=== PATIENT | male | born 1970 | race Caucasian/White ===

== ENCOUNTER 2018-12-01 13:01 | Outpatient (REF) | payer BC, SELFPAY ==
[2018-12-01 21:44] LABS: ALT 58 U/L (12-78); AST 31 U/L (15-37); Albumin 4.1 g/dL (3.4-5.0); Alkaline Phosphatase 61 U/L (46-116); Anion Gap 9.8 mmol/L (3-11); BUN 14 mg/dL (7-18); Bilirubin, Total 1.1 mg/dL (0.2-1.0); CO2 27.2 mmol/L (21.0-32.0); CREATININE 1.02 mg/dL (0.70-1.30); Calcium 9.4 mg/dL (8.5-10.1); Chloride 103 mmol/L (98-107); Cholesterol 172 mg/dL (50-200); Glucose 97 mg/dL (70-100); HDL Cholesterol 48 mg/dL (40-60); LDL CHOLESTEROL 107 mg/dL (<100); Potassium 4.5 mmol/L (3.5-5.1); Sodium 140 mmol/L (136-145); Total Protein 7.7 g/dL (6.4-8.2); Triglyceride 111 mg/dL (30-150)
== END 2018-12-01 13:21 ==
LOC: NCHCN 13:01
PROVIDERS: PCP Family Medicine; Visit Provider Physician Assistant Medical
DX: Z00.00 Encounter for general adult medical examination without abnormal findings (principal); Z13.228 Encounter for screening for other metabolic disorders; Z13.220 Encounter for screening for lipoid disorders
CPT/HCPCS: 80053; 80061; 83721

== ENCOUNTER 2018-12-23 11:16 | Emergency (ER) | payer BC, SELFPAY ==
[2018-12-23 11:38] VITALS: BP 127/77; PULSE 65; RESP 15; TEMP 36.6; O2SAT 96
--- NOTE | 2018-12-23 12:29 | ED.GENADUL_ITS ---
Discharge Plan Disposition Patient Disposition: HOME Condition: Stable Discharge Details Chief Complaint: Nk/Back Pain Clinical Impression: Thoracic myofascial strain, Back contusion Primary Care Provider: Ester Lovell V ED Provider: Alison Ndiaye Home Meds and New Rx's Prescriptions: New cyclobenzaprine 10 mg tablet 10 mg PO TID PRN (Reason: muscle spasm) Qty: 10 RF: 0 ibuprofen 600 mg tablet 600 mg PO QID PRN (Reason: pain) Qty: 20 RF: 0 oxycodone 5 mg tablet 5 mg PO Q6H PRN (Reason: pain) Qty: 5 RF: 0 Continued rabeprazole [Aciphex] 20 MG tablet,delayed release (DR/EC) 20 mg PO BID RF: 0 atenolol 25 MG tablet 25 mg PO DAILY RF: 0 Discharge Instructions Instructions: Muscle Strain (ED), Contusion in Adults (ED) Additional Instructions: Alternate ice and heat to the affected area several times daily for 20 minutes at a time. Take the Motrin and Flexeril as needed and directed for pain and spasm. Take the oxycodone for pain not relieved with Motrin or Flexeril. Follow-up with your primary care doctor in 2 days for re-evaluation and if needed reassessment of return to work date. Return immediately to the emergency department any worsening or new concerning symptoms. Stand Alone Forms: Work Release Discharge Data Discharge Physician: Alison Ndiaye Medical Decision Making 48-year-old male presents with mid line mid back pain since last night after knocked off a couch by his dog directly onto his back. Pain is intermittent. Denies any pain at present. States it feels like a spasm. No cauda equina symptoms. No urinary symptoms. No complaint of extremity pain, weakness or numbness. Midline and paraspinal cervical/thoracic/lumbar region nontender to palpation and normal to inspection. No focal deficits. Neurovascular intact. Patient appears most likely consistent with thoracic muscle strain versus spasm. Symptoms do not appear consistent with herniated disc. As patient has no midline spine tenderness suggestive of thoracic spine fracture, I do not see any indication for x-ray, but this was offered to patient and he declines at this time. We will give a dose of Toradol IM and Valium p.o. Patient requests a work note until next Saturday. Will give a work note to return Saturday, with recommendations to follow-up with his primary care doctor this week for reevaluation to reassess return to work date. Will give prescription for Flexeril, ibuprofen and a few tabs of oxycodone. He is instructed on the importance of alternating ice and heat, meds, muscle relaxers. He is instructed return to the ER at any time if worse. HPI General Mode of arrival: ambulatory . Date/Time Provider Initiated Documentation: 12/23/18 11:48 . Limitations to Documentation: no limitations . Information obtained by: patient . HPI Narrative: Patient is a 48-year-old male who presents with midline mid back pain since last night after knocked off the couch by his dog directly onto his back onto a rug. Patient states the pain is intermittent and feels like a spasm. He denies any pain at present. He denies any upper or lower extremity pain, paresthesias, saddle anesthesia, bowel or bladder incontinence, or abdominal pain. He last took ibuprofen at 530 this morning. 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 Related Data Home Medications Medication Instructions Recorded Confirmed atenolol 25 mg PO DAILY tab-cap 03/21/15 12/23/18 rabeprazole [Aciphex] 20 mg PO BID 03/21/15 12/23/18 cyclobenzaprine 10 mg PO TID PRN #10 tab 12/23/18 ibuprofen 600 mg PO QID PRN #20 tab 12/23/18 oxycodone 5 mg PO Q6H PRN #5 tab 12/23/18 Previous Rx's Medication Instructions Recorded cyclobenzaprine 10 mg PO TID PRN #10 tab 12/23/18 ibuprofen 600 mg PO QID PRN #20 tab 12/23/18 oxycodone 5 mg PO Q6H PRN #5 tab 12/23/18 Allergies Allergy/AdvReac Type Severity Reaction Status Date / Time No Known Allergies Allergy Unverified 07/01/15 08:07 General Stated Complaint: Nk/Back Pain ROMARIO: 3 Review of Systems Review of Systems All systems reviewed & are unremarkable except as noted in HPI and below Constitutional Reports as per HPI, Denies chills and Denies fever(s) Eyes Denies blurry vision ENT Denies dizziness, Denies sore throat and Denies throat swelling Cardiovascular Denies chest pain and Denies dyspnea Respiratory Denies cough and Denies dyspnea Gastrointestinal Denies abdominal pain, Denies diarrhea and Denies vomiting Genitourinary Denies hematuria and Denies dysuria Musculoskeletal Reports back pain and Denies numbness Integumentary/Breasts Denies lesions and Denies rash Neurologic Denies dizziness, Denies focal weakness and Denies numbness Allergic/Immunologic Denies throat swelling [facility] Medical History Right middle lobe pulmonary nodule (Acute) Arthralgia (Chronic) Bilateral knee pain (Chronic) Elevated LFTs (Chronic) GERD (gastroesophageal reflux disease) (Chronic) HTN (hypertension) (Chronic) Impaired fasting glucose (Chronic) Nicotine dependence, chewing tobacco, uncomplicated (Chronic) Obesity (Chronic) Skin tag (Chronic) Tubular adenoma of colon (Resolved) Surgical History Colonoscopy - IV Sedation (07/01/15) Social History Smoking and Tabacco status: Never alcohol intake: current alcohol intake frequency: 0-2 drinks per day substance use type: does not use Exam Const General: cooperative, healthy appearing and no acute distress [facility] Head: normal to inspection Face and sinus: normal facial exam Eyes General: appearance normal, both eyes and all related structures EOM: EOM intact bilaterally Neck Neck: normal visual inspection and No submandibular swelling Lymphatic: no lymphadenopathy noted Chest Chest: normal inspection of the chest and no tenderness Resp Effort & Inspection: normal respiratory effort and able to speak in complete sentences Auscultation: clear to auscultation bilaterally Cardio Rate: regular rate Rhythm: regular rhythm GI Inspection: normal to inspection Palpation: soft, not firm, not rigid and nontender Auscultation: normal bowel sounds Back/Spine/Pelvis Cervical Spine: No cervical muscular tenderness and No cervical spinal tenderness Thoracic/Lumbar Spine: straight leg raise negative bilaterally, No paraspinal tenderness, No thoracic spinal tenderness and No lumbar spinal tenderness Skin General skin exam: no rashes or lesions noted Neuro General: alert, awake and oriented x3 Cognition: normal cognition Speech: speech normal Motor: muscle tone normal throughout and strength 5/5 throughout Sensory Exam: no sensory deficits noted DTR's: Rt Patellar: 1+, Lt Patellar: 1+, Rt Ankle: 1+ and Lt Ankle: 1+ Plantar Reflexes: Equivocal: bilateral Extrem General: normal to inspection, full ROM and no edema Right lower extremity: foot Details: vascular exam Details: dorsalis pedis pulse present and posterior tibial pulse present Left lower extremity: foot Details: vascular exam Details: dorsalis pedis pulse present and posterior tibial pulse present Psych Appearance: grossly normal Mental Status: mental status grossly normal Speech and Movement: speech and movement normal Affect: normal affect Course Vital Signs Temperature 97.9 F 12/23/18 11:38 Pulse 65 12/23/18 11:38 Respiratory Rate 15 12/23/18 11:38 Blood Pressure 127/77 12/23/18 11:38 Pulse Oximetry 96 12/23/18 11:38 Temperature 97.9 F 12/23/18 11:38 Temperature Source Temporal Artery Scan 12/23/18 11:38 Pulse 65 12/23/18 11:38 Respiratory Rate 15 12/23/18 11:38 Respiratory Effort Non-Labored 12/23/18 11:42 Blood Pressure 127/77 12/23/18 11:38 Blood Pressure Position Sitting 12/23/18 11:38 Pulse Oximetry 96 12/23/18 11:38 Oxygen Delivery Method Room Air 12/23/18 11:38 Oxygen Flow Rate 0 12/23/18 11:38 Pain Level 6 12/23/18 11:38
[2018-12-23] MEDS: Ketorolac 60 MG/2 ML VIAL IM (12:32)
[2018-12-23] MEDS: Diazepam 5 MG TAB PO (12:33)
[2018-12-23 12:46] VITALS: BP 127/77; PULSE 65; RESP 15; TEMP 36.6; O2SAT 96
== END 2018-12-23 12:48 | disposition home or self-care (01) ==
PROVIDERS: Emergency Provider Physician Assistant; PCP Family Medicine
DX: S29.012A Strain of muscle and tendon of back wall of thorax, initial encounter (principal); S20.229A Contusion of unspecified back wall of thorax, initial encounter; W54.1XXA Struck by dog, initial encounter
CPT/HCPCS: 96372; 99284; J1885

== ENCOUNTER 2019-03-02 07:30 | Day surgery (SDC) | payer BC, SELFPAY ==
--- NOTE | 2019-03-02 06:42 | W.COLOREPORT ---
Date of service: 03/02/19 Colonoscopy Report Date of procedure: 03/02/19 Pre-op diagnosis general: Hx of polyps and family history of colon Cancer Post-op diagnosis procedure note: same Surgeon: Harper Borjas Anesthesia proc note operative: other (General/ ASA / ) Complications: None Disposition: same day Indications: Mr. Middleton is a pleasant 49-year-old gentleman who was seen in the office for follow-up colonoscopy. He has a family history of colon cancer. His last colonoscopy was in 2014 and he was noted to have a tubular adenoma as well as numerous small polypoid lesions throughout the colon which were randomly biopsied and came back benign. Risks, benefits and complications have been reviewed. Complications include but are not limited to bleeding, pain, perforation, missed small lesion/polyp, sore throat, aspiration and adverse reaction to the medications. Questions were entertained and answered to their satisfaction and they wished to proceed. No guarantees were given or implied. Prep: Miralax/Dulcolax Procedure Description: After informed consent was obtained the patient was taken to the procedure room and placed in a left decubitous position. Monitors were applied and a time out was done. The patients name, date of , procedure, allergies to medications and metal in their body was reviewed. The patient was then sedated. Once sedated and comfortable a rectal exam was done. External exam was normal. Internal exam revealed a normal sphincter tone and no palpable masses. The prostate []. The scope was then introduced and retro-flexed. [] internal hemorrhoids were identified. The scope was then advanced to the cecum [] difficulty. The TI and appendiceal orifice were identified. The prep was []. The scope was then slowly retracted over [] minutes back into the rectum. Polyps were removed at []. The scope was removed and the patient was woken up and taken back to Same day surgery in stable condition. The patient tolerated the procedure well and there were no immediate complications. Follow up: The patient should follow up in [] years unless they develop changes in bowel habits or other new gastrointestinal complaints.
--- NOTE | 2019-03-02 06:44 | W.PM.DSUDISC ---
Discharge Plan Disposition Patient Disposition: HOME Condition: Good Discharge Details Reason For Visit: Hx of colon polyps and FHx of colon Cancer Attending Provider: Harper Borjas Primary Care Provider: Ester Lovell V Home Meds and New Rx's Prescriptions: No Action polyethylene glycol 3350 17 gram/dose powder 238 g PO ONCE Qty: 238 RF: 0 bisacodyl [Dulcolax (bisacodyl)] 5 mg tablet,delayed release (DR/EC) 5 mg PO ONCE Qty: 4 RF: 0 rabeprazole [Aciphex] 20 MG tablet,delayed release (DR/EC) 20 mg PO ONCE RF: 0 atenolol 25 MG tablet 25 mg PO DAILY RF: 0 cyclobenzaprine 10 mg tablet 10 mg PO TID PRN (Reason: muscle spasm) Qty: 10 RF: 0 acetaminophen [Acetaminophen Extra Strength] 500 mg Tablet 500 mg PO Q6H PRNRF: 0 Discharge Instructions Instructions: Colonoscopy (DC) Additional Instructions: Findings: Follow up: Please call if you develop: fevers >101.5 Nausea or Vomiting Abdominal pain that is not transient DAY SURGERY UNIT POST COLONOSCOPY INSTRUCTIONS 1. Because there will be medication in your system for the next 24 hours, you may feel a little sleepy. Your coordination will be affected. Therefore: a. Do not drive or operate dangerous equipment for 24 hours. b. Do not drink alcohol beverages for 24 hours (not even beer). c. Plan to go home and rest for the day. 2. Generally there are no restrictions on your activity after a day or so has gone by, but you may feel a bit fatigued for a few days. 3 After you arrive home you may have a light meal and return to a normal diet as you can tolerate it without feeling sick to your stomach. 4. After surgery, you may feel pain or discomfort. This should be only transient, but if it persists please contact your doctor. 5. If there are any questions regarding the findings of your procedure, please feel free to contact your doctor. 6. If you are unable to contact your doctor with a problem, contact the hospital at [phone]. 7. Continue all your regular medications unless directed otherwise. I understand the above instructions and have no questions. Signature of Patient or Responsible Adult Escort Date/Time Name of Responsible Adult Escort Signature of Nurse Date/Time Activity:: Activity as Tolerated Diet:: As Tolerated DS: Diagnosis Discharge Diagnosis (1) Family history of colon cancer: Status: Chronic (2) S/P colonoscopy: Status: Acute
== END 2019-03-02 07:50 | disposition home or self-care (01) ==
PROVIDERS: PCP Family Medicine; Visit Provider Surgery
DX: Z12.11 Encounter for screening for malignant neoplasm of colon (principal); Z53.29 Procedure and treatment not carried out because of patient's decision for other reasons
CPT/HCPCS: 45378

== ENCOUNTER 2019-04-14 07:11 | Day surgery (SDC) | payer BC, SELFPAY ==
--- NOTE | 2019-04-14 06:49 | W.COLOREPORT ---
Date of service: 04/14/19 Time of Service: 08:25 Colonoscopy Report Date of procedure: 04/14/19 Pre-op diagnosis general: Hx of polyps and Family history Post-op diagnosis procedure note: same (cecal polyp) Procedure: Colonoscopy with polypectomy Surgeon: Harper Borjas Anesthesia proc note operative: other (General/ ASA 2/Jin Hopper CRNA) Estimated blood loss (mL): 2 Pathology: other (cecal polyp) Complications: Other (polyp possibly lost as we got it out of the tubbing) Disposition: same day Indications: Mr. Middleton is a pleasant 49 year old male seen in the office for a colonoscopy. His last Colonoscopy was in 2014 and he had polyps. He also has a family history of colon cancer. Risks, benefits and complications have been reviewed. Complications include but are not limited to bleeding, pain, perforation, missed small lesion/polyp, sore throat, aspiration and adverse reaction to the medications. Questions were entertained and answered to their satisfaction and they wished to proceed. No guarantees were given or implied. Prep: Miralax/Dulcolax Procedure Start Time: :25 Procedure End Time: 08:57 Retraction Time: 24 minutes Findings: One very small polyp in the Cecum. It was removed but when the forceps were removed from the colonoscope and opened there was no tissue. A trap was placed on the suction and the fluid was suctioned out. There was a small amount of tissue in the trap. Patient should follow up in 5 years no matter what due to his family history. Procedure Description: After informed consent was obtained the patient was taken to the procedure room and placed in a left decubitous position. Monitors were applied and a time out was done. The patients name, date of , procedure, allergies to medications and metal in their body was reviewed. The patient was then sedated. Once sedated and comfortable a rectal exam was done. External exam was normal. Internal exam revealed a normal sphincter tone and no palpable masses. The prostate felt smooth. The scope was then introduced and retro-flexed. There were small internal hemorrhoids identified. The scope was then advanced to the cecum without difficulty. The TI and appendiceal orifice were identified. The prep was adequate. There was some mucus and stool in the cecum and ascending colon which was cleaned with 1 L of Saline to get a good view of the mucosa. The scope was then slowly retracted over 24 minutes back into the rectum. Polyps were removed with cold forceps in the cecum. The tissue was not found when the forceps were opened. A trap was placed on the suction tubing and the fluid was suctioned out. A small amount of tissue was noted in the trap and sent to pathology. The scope was removed and the patient was woken up and taken back to Same day surgery in stable condition. The patient tolerated the procedure well and there were no immediate complications. Follow up: The patient should follow up in 5 years unless they develop changes in bowel habits or other new gastrointestinal complaints.
--- NOTE | 2019-04-14 06:59 | W.PM.DSUDISC ---
Discharge Plan Disposition Patient Disposition: HOME Condition: Good Discharge Details Reason For Visit: Hx of polyps/ Family history of colon Cancer Attending Provider: Harper Borjas Primary Care Provider: Ester Lovell V Home Meds and New Rx's Prescriptions: Continued rabeprazole [Aciphex] 20 MG tablet,delayed release (DR/EC) 20 mg PO ONCE RF: 0 atenolol 25 MG tablet 25 mg PO DAILY RF: 0 cyclobenzaprine 10 mg tablet 10 mg PO TID PRN (Reason: muscle spasm) Qty: 10 RF: 0 acetaminophen [Acetaminophen Extra Strength] 500 mg Tablet 500 mg PO Q6H PRNRF: 0 Discontinued polyethylene glycol 3350 17 gram/dose powder 238 g PO ONCE Qty: 238 RF: 0 bisacodyl [Dulcolax (bisacodyl)] 5 mg tablet,delayed release (DR/EC) 5 mg PO ONCE Qty: 4 RF: 0 Discharge Instructions Instructions: Colonoscopy (DC) Additional Instructions: Findings: one polyp small internal hemorrhoids Follow up: 5 years Please call if you develop: fevers >101.5 Nausea or Vomiting Abdominal pain that is not transient DAY SURGERY UNIT POST COLONOSCOPY INSTRUCTIONS 1. Because there will be medication in your system for the next 24 hours, you may feel a little sleepy. Your coordination will be affected. Therefore: a. Do not drive or operate dangerous equipment for 24 hours. b. Do not drink alcohol beverages for 24 hours (not even beer). c. Plan to go home and rest for the day. 2. Generally there are no restrictions on your activity after a day or so has gone by, but you may feel a bit fatigued for a few days. 3 After you arrive home you may have a light meal and return to a normal diet as you can tolerate it without feeling sick to your stomach. 4. After surgery, you may feel pain or discomfort. This should be only transient, but if it persists please contact your doctor. 5. If there are any questions regarding the findings of your procedure, please feel free to contact your doctor. 6. If you are unable to contact your doctor with a problem, contact the hospital at [phone]. 7. Continue all your regular medications unless directed otherwise. I understand the above instructions and have no questions. Signature of Patient or Responsible Adult Escort Date/Time Name of Responsible Adult Escort Signature of Nurse Date/Time Activity:: Activity as Tolerated Diet:: As Tolerated Discharge Orders Discharge Orders: Discharge Order (Routine); Ordered 04/14/19 Ordered By: Harper Borjas DS: Diagnosis Discharge Diagnosis (1) S/P colonoscopy: Status: Acute (2) Family history of colon cancer: Status: Chronic
--- NOTE | 2019-04-14 07:10 | W.PM.HP.N ---
Date of service: 04/14/19 Time of Service: 07:00 Assessment and Plan (1) Family history of colon cancer: Current visit: No Status: Chronic A\\ Family history of colon Cancer and personal history of colon polyps P\\ Colonoscopy under sedation The patient is here for Colonoscopy pre-op. His last screening was in 2014, which was remarkable for Tubular adenoma and Diverticulitis. Also of note the Colonoscopy procedure note by Dr. Ty also states: Interestingly enough though he has literally 100s of these very tiny polypoid lesions, of really questionable significance. None of them are more than a few millimeters in diameter. I did retail customer service representative biopsies in the cecum, transverse colon, descending colon, sigmoid colon and rectum and sent these off. He has a family history of colon cancer in his paternal grandfather. He has not had any bowel habit changes. -Discussed colonoscopy bowel prep as well as the procedure. Discussed possible complications of the procedure to include bleeding, pain, perforation, missed small lesion/polyp, sore throat, aspiration and adverse reaction to the medications. Questions were answered to patient?s satisfaction. No guarantees were implied or given. -He will hold his Ibuprofen starting 5 days prior to his procedure. -Counseled him on his heavy alcohol use. He reports that he has been cutting back and has been trying to drink more light beers instead of whiskey. He has also been trying to make diet modifications for weight loss. He verbalized that he is aware, that to improve his health he should cut back and states I will never stop drinking, I am just going to drink less. (2) Tubular adenoma of colon: Current visit: No Status: Chronic History of Present Illness Narrative: 49 y/o male with history of HTN and GERD presents for colonoscopy screening pre-op. His last screening was in 2014, which was remarkable for Tubular adenoma and Diverticulitis. Also of note the Colonoscopy procedure note by Dr. Ty also states: Interestingly enough though he has literally 100s of these very tiny polypoid lesions, of really questionable significance. None of them are more than a few millimeters in diameter. I did retail customer service representative biopsies in the cecum, transverse colon, descending colon, sigmoid colon and rectum and sent these off. He reports a family history of colon cancer in his paternal grandfather. He denies any changes in bowel habits reporting he frequently has loose stools. Denies bloody or black tarry stools, abdominal pain, diarrhea or constipation. He denies constitutional symptoms. Denies use of marijuana or any other recreational or illegal drugs. He has been out of work for several weeks secondary to severe back pain, which he is currently working with PT to help resolve. He denies chest pain, palpitations, dyspnea or dyspnea with exertion. He denies prior history or family history of adverse reactions or complications with anesthesia. No changes in his health since he was seen in the office. [facility] Medical History Right middle lobe pulmonary nodule (Acute) Arthralgia (Chronic) Bilateral knee pain (Chronic) Elevated LFTs (Chronic) GERD (gastroesophageal reflux disease) (Chronic) HTN (hypertension) (Chronic) Impaired fasting glucose (Chronic) Nicotine dependence, chewing tobacco, uncomplicated (Chronic) Obesity (Chronic) Skin tag (Chronic) Tubular adenoma of colon (Resolved) Surgical History History of arthroscopy of both knees (Acute) Colonoscopy - IV Sedation (07/01/15) Family History Father Cancer Mother COPD (chronic obstructive pulmonary disease) Maternal Grandfather DJD (degenerative joint disease) Social History Smoking/Tobacco Use Status: Never Alcohol Intake: current Alcohol Intake frequency: 0-2 drinks per day Alcohol type: beer and hard liquor Drug use: Never Substance use type: does not use Do you feel safe at home: Yes Do you feel safe in your relationship?: Yes Meds Home Medications Medication Instructions Recorded Confirmed Type atenolol 25 mg PO DAILY tab-cap 03/21/15 04/14/19 History rabeprazole [Aciphex] 20 mg PO ONCE 03/21/15 04/14/19 History cyclobenzaprine 10 mg PO TID PRN #10 tab 12/23/18 04/14/19 Rx acetaminophen [Acetaminophen Extra 500 mg PO Q6H PRN 02/25/19 04/14/19 History Strength] Allergies Allergy/AdvReac Type Severity Reaction Status Date / Time No Known Allergies Allergy Unverified 04/14/19 07:21 Exam Resp Effort & Inspection: normal respiratory effort Auscultation: clear to auscultation bilaterally Cardio Rate: regular rate Rhythm: regular rhythm Heart Sounds: no gallops, no murmurs and no rubs
[2019-04-14 07:34] VITALS: BP 124/87; PULSE 67; RESP 18; TEMP 37; O2SAT 97
[2019-04-14] MEDS: Lactated Ringers 1,000 ML 80 ML IV (07:53)
--- NOTE | 2019-04-14 08:35 | BOWEL_PTH ---
PATIENT: Anuel Middleton LOC: [facility] U#:[id number] AGE/SX: 49/M ROOM: RE04/14/[address]: Harper Borjas MD : [id number] BED: DIS: 04/14/2019 SPEC #: [id number] RECD: 04/14/19 12:49 STATUS: [place] RECallie #: [id number] MATT: 04/14/19 08:[address]: Harper Borjas DEPT: Surgical Specimen RECD BY: Rena Alcala ENTERED: 04/14/19 12:50 SP TYPE: Bowel OTHR DR: Ester Lovell V Tissues: 1 - BIOPSY BOWEL Procedures: GROSS AND MICRO LEVEL 4 Comments: [id number]
[2019-04-14 09:45] VITALS: BP 112/71; PULSE 61; RESP 18; TEMP 36.1; O2SAT 97
== END 2019-04-14 10:15 | disposition home or self-care (01) ==
LOC: SUR 07:12
PROVIDERS: PCP Family Medicine; Visit Provider Surgery
PROC: 0DJD8ZZ Inspection of Lower Intestinal Tract, Via Natural or Artificial Opening Endoscopic (ICD-10-PCS; CPT 45378; principal; 2019-04-14 08:30)
DX: Z12.11 Encounter for screening for malignant neoplasm of colon (principal); Z80.0 Family history of malignant neoplasm of digestive organs; Z86.010 Personal history of colon polyps; K63.5 Polyp of colon; K64.8 Other hemorrhoids
CPT/HCPCS: 45380; 88305; NC

== ENCOUNTER 2019-11-06 08:25 | Outpatient (REF) | payer BC, SELFPAY ==
[2019-11-06 19:38] LABS: ALT 63 U/L (16-63); AST 38 U/L (15-37); Alkaline Phosphatase 53 U/L (46-116); Anion Gap 10.3 mmol/L (3-11); BUN 14 mg/dL (7-18); Bilirubin, Total 0.7 mg/dL (0.2-1.0); CO2 26.7 mmol/L (21.0-32.0); CREATININE 0.88 mg/dL (0.70-1.30); Calcium 9.1 mg/dL (8.5-10.1); Calculated LDL 102 mg/dL; Chloride 104 mmol/L (98-107); Cholesterol 167 mg/dL (<200); Glucose 105 mg/dL (74-106); HDL Cholesterol 33 mg/dL (40-60); Potassium 4.3 mmol/L (3.5-5.1); Sodium 141 mmol/L (136-145); Total Protein 7.2 g/dL (6.4-8.2); Triglyceride 162 mg/dL (<150)
[2019-11-06 19:48] LABS: Hemoglobin A1C 5.3 % (3.8-5.6)
== END 2019-11-06 08:45 ==
LOC: NCHCN 08:25
PROVIDERS: PCP Family Medicine; Visit Provider Physician Assistant Medical
DX: I10 Essential (primary) hypertension (principal)
CPT/HCPCS: 80053; 80061; 83036

== ENCOUNTER 2019-11-19 00:54 | Outpatient (CLI) | payer BC, SELFPAY ==
--- NOTE | 2019-11-19 15:25 | DI.CT_ITS ---
EXAM: CT CHEST WO CLINICAL HISTORY: PULMONARY NODULE RT MIDDLE LOBE R91.1 TECHNIQUE: Noncontrast COMPARISON: CHEST WITH CONTRAST from 11/25/2017 FINDINGS: There has been no change in size or appearance of a previously noted smoothly marginated nodule in th e right middle lobe measuring 8 millimeters in maximal dimension. No new nodules are seen. There ar e no infiltrates, effusions or evidence of adenopathy. The bronchi appear normal. There are no unde rlying emphysematous or fibrotic changes. The heart size is normal. No coronary artery or aortic ca lcifications are seen. Liver shows severe fatty infiltration. The gallbladder, spleen and adrenals appear normal. The visualized portions of the pancreas and kidneys appear normal. Flowing osteophyt es are noted in the thoracic spine. IMPRESSION: Stable appearance of right middle lobe nodule. Given lack of change control manager 2 years, this is consistent with a benign nodule.
== END 2019-11-19 01:14 ==
PROVIDERS: PCP Family Medicine; Visit Provider Physician Assistant Medical
DX: R91.1 Solitary pulmonary nodule (principal); K76.0 Fatty (change of) liver, not elsewhere classified
CPT/HCPCS: 71250

== ENCOUNTER 2020-11-11 11:03 | Outpatient (REF) | payer BC, SELFPAY ==
[2020-11-11 15:31] LABS: ALT 73 U/L (16-63); AST 47 U/L (15-37); Albumin 3.9 g/dL (3.4-5.0); Alkaline Phosphatase 61 U/L (46-116); Anion Gap 7.5 mmol/L (3-11); BUN 16 mg/dL (7-18); Bilirubin, Total 0.7 mg/dL (0.2-1.0); CO2 25.5 mmol/L (21.0-32.0); CREATININE 0.92 mg/dL (0.70-1.30); Calcium 9.1 mg/dL (8.5-10.1); Calculated LDL 117 mg/dL (<100); Chloride 105 mmol/L (98-107); Cholesterol 186 mg/dL (<200); Glucose 106 mg/dL (74-106); HDL Cholesterol 43 mg/dL (40-60); Potassium 4.2 mmol/L (3.5-5.1); Sodium 138 mmol/L (136-145); Total Protein 7.3 g/dL (6.4-8.2); Triglyceride 131 mg/dL (<150)
[2020-11-11 15:42] LABS: Hemoglobin A1C 5.1 % (<5.7)
[2020-11-15 10:54] LABS: Hepatitis A Antibody IgM Negative (Negative); Hepatitis B Core Antibody Negative (Negative); Hepatitis B surface Ag Negative (Negative); Hepatitis C Ab w Rflx HCV PCR Negative (Negative)
== END 2020-11-11 11:23 ==
LOC: NCHCN 11:03
PROVIDERS: PCP Family Medicine; Visit Provider Physician Assistant Medical
DX: I10 Essential (primary) hypertension (principal); R73.01 Impaired fasting glucose; R79.89 Other specified abnormal findings of blood chemistry
CPT/HCPCS: 80053; 80061; 86704; 86709; 86803; 87340; 83036

== ENCOUNTER 2021-05-12 08:40 | Outpatient (REF) | payer BC, SELFPAY ==
[2021-05-12 19:26] LABS: ALT 66 U/L (16-63); AST 40 U/L (15-37); Albumin 4.1 g/dL (3.4-5.0); Alkaline Phosphatase 65 U/L (46-116); Anion Gap 9.2 mmol/L (3-11); BUN 15 mg/dL (7-18); CO2 25.8 mmol/L (21.0-32.0); CREATININE 0.9 mg/dL (0.70-1.30); Chloride 106 mmol/L (98-107); Glucose 103 mg/dL (74-106); Potassium 4.6 mmol/L (3.5-5.1); Sodium 141 mmol/L (136-145); Total Protein 7.2 g/dL (6.4-8.2)
== END 2021-05-12 08:41 | disposition home or self-care (01) ==
LOC: NCHCN 08:40
PROVIDERS: PCP Family Medicine; Visit Provider Physician Assistant Medical
DX: R79.89 Other specified abnormal findings of blood chemistry (principal); R73.03 Prediabetes
CPT/HCPCS: 80053

== ENCOUNTER 2021-11-10 08:49 | Outpatient (REF) | payer BC, SELFPAY ==
[2021-11-10 13:22] LABS: ALT 71 U/L (16-63); AST 39 U/L (15-37); Albumin 4.1 g/dL (3.4-5.0); Alkaline Phosphatase 67 U/L (46-116); Anion Gap 8.9 mmol/L (3-11); BUN 16 mg/dL (7-18); Bilirubin, Total 0.8 mg/dL (0.2-1.0); CO2 27.1 mmol/L (21.0-32.0); CREATININE 0.8 mg/dL (0.70-1.30); Calcium 9.5 mg/dL (8.5-10.1); Calculated LDL 90 mg/dL (<100); Chloride 104 mmol/L (98-107); Cholesterol 157 mg/dL (<200); Glucose 105 mg/dL (74-106); HDL Cholesterol 34 mg/dL (40-60); Potassium 4.4 mmol/L (3.5-5.1); Sodium 140 mmol/L (136-145); Total Protein 7.3 g/dL (6.4-8.2); Triglyceride 167 mg/dL (<150)
== END 2021-11-10 08:50 | disposition home or self-care (01) ==
LOC: NCHCN 08:49
PROVIDERS: PCP Family Medicine; Visit Provider Physician Assistant Medical
DX: I10 Essential (primary) hypertension (principal); R79.89 Other specified abnormal findings of blood chemistry
CPT/HCPCS: 80053; 80061; 85027; 83036

== ENCOUNTER 2022-05-18 09:55 | Outpatient (REF) | payer BC, SELFPAY ==
[2022-05-18 16:43] LABS: HCT 46.2 % (40.0-50.0); HGB 16.9 g/dL (13.5-17.5); MCH 34.1 pg (27.0-33.0); MCHC 36.6 % (32.0-36.0); MCV 93 fL (80-95); MPV 10.6 fL (8.0-11.0); Platelet Count 175 10^3/uL (130-400); RBC 4.96 10^6/uL (4.36-5.78); RDW 11.8 % (11.8-14.1); RDW-SD 40.7 fL; WBC 5.52 10^3/uL (4.4-10.8)
[2022-05-18 16:54] LABS: ALT 90 U/L (16-63); AST 56 U/L (15-37); Albumin 4.1 g/dL (3.4-5.0); Alkaline Phosphatase 69 U/L (46-116); Anion Gap 9.6 mmol/L (3-11); BUN 15 mg/dL (7-18); Bilirubin, Total 0.8 mg/dL (0.2-1.0); CO2 24.4 mmol/L (21.0-32.0); CREATININE 0.9 mg/dL (0.70-1.30); Calcium 9.9 mg/dL (8.5-10.1); Chloride 104 mmol/L (98-107); Glucose 115 mg/dL (74-106); Potassium 4.2 mmol/L (3.5-5.1); Sodium 138 mmol/L (136-145); Total Protein 7.6 g/dL (6.4-8.2)
== END 2022-05-18 09:56 | disposition home or self-care (01) ==
LOC: NCHCN 09:55
PROVIDERS: PCP Family Medicine; Visit Provider Physician Assistant Medical
DX: R79.89 Other specified abnormal findings of blood chemistry (principal)
CPT/HCPCS: 80053; 85027

== ENCOUNTER 2022-12-04 15:54 | Outpatient (REF) | payer BC, SELFPAY ==
[2022-12-04 18:37] LABS: HCT 44.4 % (40.0-50.0); HGB 15.5 g/dL (13.5-17.5); MCH 32.3 pg (27.0-33.0); MCHC 34.9 % (32.0-36.0); MCV 93 fL (80-95); MPV 9.8 fL (8.0-11.0); Platelet Count 240 10^3/uL (130-400); RDW 11.6 % (11.8-14.1); RDW-SD 39.8 fL; WBC 7.34 10^3/uL (4.4-10.8)
[2022-12-04 18:50] LABS: ALT 52 U/L (16-63); AST 37 U/L (15-37); Albumin 4.3 g/dL (3.4-5.0); Alkaline Phosphatase 75 U/L (46-116); Anion Gap 7.8 mmol/L (3-11); BUN 18 mg/dL (7-18); Bilirubin, Total 0.6 mg/dL (0.2-1.0); CO2 26.2 mmol/L (21.0-32.0); CREATININE 1.1 mg/dL (0.70-1.30); Calcium 10.3 mg/dL (8.5-10.1); Chloride 105 mmol/L (98-107); Estimated GFR 80.27 (mL/min/1.73m2); Glucose 116 mg/dL (74-106); Potassium 4.2 mmol/L (3.5-5.1); Sodium 139 mmol/L (136-145); Total Protein 7.6 g/dL (6.4-8.2)
== END 2022-12-04 15:55 | disposition home or self-care (01) ==
LOC: NCHCN 15:54
PROVIDERS: PCP Family Medicine; Visit Provider Physician Assistant Medical
DX: I10 Essential (primary) hypertension (principal); R79.89 Other specified abnormal findings of blood chemistry
CPT/HCPCS: 80053; 85027

== ENCOUNTER 2022-12-11 20:11 | Emergency (ER) | payer BC, SELFPAY ==
[2022-12-11 20:15] VITALS: BP 141/91; PULSE 76; RESP 18; TEMP 36.5; O2SAT 97
--- NOTE | 2022-12-11 20:20 | ED.GENADUL_ITS ---
Discharge Plan Disposition Patient Disposition: Home Condition: Stable Discharge Details Clinical Impression: Lumbosacral strain, Spasm of muscle of lower back Primary Care Provider: Ester Lovell V ED Provider: Alison Ndiaye Home Meds and New Rx's Prescriptions: New methocarbamol 500 mg tablet 500 mg PO Q6H PRN (Reason: muscle spasm) Qty: 14 0RF prednisone 20 mg tablet See Rx Instructions .ROUTE .COMPLEX Qty: 18 0RF Rx Instructions: Take 3 tabs daily for 3 days, then 2 tabs daily for 3 days, then 1 tab daily for 3 days. Continued atenolol 25 MG tablet 25 mg PO DAILY diclofenac sodium 75 mg tablet,delayed release (DR/EC) 75 mg PO BID rabeprazole [AcipHex] 20 mg tablet,delayed release (DR/EC) 20 mg PO DAILY Discharge Instructions Instructions: Low Back Strain (ED), Muscle Spasm (ED) Additional Instructions: Your symptoms appear likely consistent with a musculoskeletal strain in your lower back. Alternate ice and heat to the affected area(s) several times daily for 20 minutes at a time. Alternate tylenol and ibuprofen as needed and directed for pain. Take the oxycodone for pain not relieved with Tylenol or ibuprofen. Prescriptions for prednisone and methocarbamol sent electronically to your pharmacy. Follow-up with your primary care doctor in 1 week. Return to the emergency department with any worsening or new concerning symptoms. Stand Alone Forms: Work Release Discharge Data Discharge Date/Time-TO BE ENTERED AT DEPARTURE: 12/11/22 21:18 Discharge Physician: Alison Ndiaye Medical Decision Making 52-year-old male with a history of obesity, hypertension, GERD, previous back injury presents with left-sided lower back pain for the past week, worse today after putting on his shoes. Patient appears uncomfortable but nontoxic. He has an antalgic gait secondary to left-sided lower back pain. His left lower back is tender to palpation just superior to the SI joint. There is no evidence of rash, trauma or cellulitis. He has no focal deficits. History and presentation does not appear consistent with cauda equina syndrome, fracture, kidney stone, AAA. Suspect musculoskeletal etiology as his symptoms started after bending over placing wood in a wood stove and worse when bending over to put on his shoes today. D iscussed that he likely can respond to a short course of steroids and muscle relaxers but also recommended to alternate Tylenol and Motrin, ice and heat. We will give a dose of prednisone, Valium and oxycodone now and was given oxycodone bottle to go. Prescriptions for prednisone and methocarbamol sent electronically to his pharmacy. Advised to follow up with the primary care doctor for re-evaluation. Usual and customary return precautions given prior to discharge. Medical Records Medical records reviewed: Yes I reviewed the patient's medical records. HPI General Mode of arrival: ambulatory . Date/Time Provider Initiated Documentation: 12/11/22 20:13 . Limitations to Documentation: no limitations . Information obtained by: patient . HPI Narrative: Pt is a 52yo M history of obesity, hypertension, GERD and previous back injury presents with left-sided lower back pain for the past week, worse today after putting on his shoes. Patient states he was bending over [address] wood in the wood stove when he had sudden onset of left-sided lower back pain. Patient states since then he has had pain that occurs mostly with movement. He denies any fever, abdominal pain, urinary symptoms, bowel or bladder i ncontinence, leg pain, weakness or numbness. Patient took 3 Advil 3 hours ago with some relief. He states he also had a 10 mg Valium left over from a previous back injury in 2019 which he took 5 hours ago with out relief. Related Data Home Medications Medication Instructions Recorded Confirmed atenolol 25 mg tablet 25 mg PO DAILY 03/21/15 12/11/22 diclofenac sodium 75 mg 75 mg PO BID 05/23/21 12/11/22 tablet,delayed release rabeprazole 20 mg tablet,delayed 20 mg PO DAILY 06/20/21 12/11/22 release (AcipHex) methocarbamol 500 mg tablet 500 mg PO Q6H PRN muscle spasm #14 12/11/22 tabs prednisone 20 mg tablet See Rx Instructions .Route 12/11/22 .COMPLEX #18 tabs Previous Rx's Medication Instructions Recorded methocarbamol 500 mg tablet 500 mg PO Q6H PRN muscle spasm #14 12/11/22 tabs prednisone 20 mg tablet See Rx Instructions .Route 12/11/22 .COMPLEX #18 tabs Allergies Allergy/AdvReac Type Severity Reaction Status Date / Time No Known Allergies Allergy Unverified 12/11/22 20:54 General Stated Complaint: Nk/Back Pain ROMARIO: 4 Review of Systems All systems reviewed & are unremarkable except as noted in HPI and below Constitutional Constitutional: Reports as per HPI, Denies chills and Denies fever(s) Eyes Eyes: Denies blurry vision ENT Ears, Nose, Mouth, and Throat: Denies dizziness, Denies sore throat and Denies throat swelling Cardiovascular Cardiovascular: Denies chest pain and Denies dyspnea Respiratory Respiratory: Denies cough and Denies dyspnea Gastrointestinal Gastrointestinal: Denies abdominal pain, Denies diarrhea and Denies vomiting Genitourinary Genitourinary: Denies hematuria and Denies dysuria Musculoskeletal Musculoskeletal: Reports back pain and Denies numbness Integumentary/Breasts Skin/Breast: Denies lesions and Denies rash Neurologic Neurologic: Denies dizziness, Denies localized weakness and Denies numbness Allergic/Immunologic Allergic/Immunologic: Denies throat swelling PFSH All Active Problems Lumbosacral strain (Acute) Spasm of muscle of lower back (Acute) Left carpal tunnel syndrome (Acute) Tubular adenoma of colon (Chronic) Family history of colon cancer (Chronic) S/P colonoscopy (Acute ~04/14/19) 2015-Tubular adenoma Medical History (Updated 12/11/22 @ 20:59 by Alison Ndiaye DO) Arthralgia Bilateral knee pain Elevated LFTs GERD (gastroesophageal reflux disease) HTN (hypertension) Hx of colonic polyp Impaired fasting glucose PT. STATES HE IS UNSURE OF THIS Nicotine dependence, chewing tobacco, uncomplicated Obesity Pain in left shoulder Right middle lobe pulmonary nodule Skin tag Tubular adenoma of colon Fredo, 07/01/15 Surgical History Colonoscopy - IV Sedation (07/01/15) Dr.Chris Ty History of arthroscopy of both knees Family History (Updated 05/17/21 @ 14:14 by Majo Fuller) Father Cancer Alcohol abuse Mother COPD (chronic obstructive pulmonary disease) Maternal Grandfather DJD (degenerative joint disease) Paternal Grandfather Alcohol abuse Colon cancer Paternal Grandmother Diabetes Daughter Alcohol abuse Social History (Updated 05/17/21 @ 14:13 by Majo Fuller) Smoking/Tobacco Use Status: Current every day Tobacco Type: smokeless tobacco Smoking risk assessment performed?: Yes Alcohol Intake: former Drug use: Never Substance use type: does not use Do you feel safe at home: Yes Do you feel safe in your relationship?: Yes Exam Const General: cooperative and uncomfortable Orientation: alert, awake and oriented x3 HENMT Head: normal to inspection Face and sinus: normal facial exam Eyes General: appearance normal, both eyes and all related structures Pupils: PERRL EOM: EOM intact bilaterally Neck Neck: normal visual inspection and No submandibular swelling Lymphatic: no lymphadenopathy noted Chest Chest: normal inspection of the chest and no tenderness Resp Effort & Inspection: normal respiratory effort and able to speak in complete sentences Auscultation: clear to auscultation bilaterally Cardio Rate: regular rate Rhythm: regular rhythm GI Inspection: normal to inspection Palpation: soft, not firm, not rigid and nontender Auscultation: hypoactive bowel sounds Back/Spine/Pelvis Thoracic/Lumbar Spine: thoracic and lumbar spine normal to inspection, No tho racic spinal tenderness and No lumbar spinal tenderness Back/spine/pelvis image: 1. Localized area of tenderness to palpation to the left lower back just super ior to the SI joint. There is no erythema, edema, ecchymosis, rash or lesions. Skin General skin exam: no rashes or lesions noted Neuro General: patient alert, patient awake and patient oriented x3 Cognition: normal cognition Speech: speech normal Motor: muscle tone normal throughout and strength 5/5 throughout Sensory Exam: no sensory deficits noted DTR's: Rt Patellar: 1+, Lt Patellar: 1+, Rt Ankle: 1+ and Lt Ankle: 1+ Plantar Reflexes: Equivocal: bilateral (negative b/l ) Extrem General: normal to inspection, full ROM, capillary refill normal, no calf tenderness bilaterally and no edema Psych Appearance: grossly normal Mental Status: mental status grossly normal Speech and Movement: speech and movement normal Affect: normal affect Course Vital Signs Vital signs: Vital Signs Temperature 97.7 F 12/11/22 20:15 Pulse 76 12/11/22 20:15 Respiratory Rate 18 12/11/22 20:15 Blood Pressure 141/91 H 12/11/22 20:15 Temperature 97.7 F 12/11/22 20:15 Pulse 76 12/11/22 20:15 Respiratory Rate 18 12/11/22 20:15 Blood Pressure 141/91 H 12/11/22 20:15 Blood Pressure Position Sitting 12/11/22 20:15 Oxygen Delivery Method Room Air 12/11/22 20:15 Oxygen Flow Rate 0 12/11/22 20:15 Pain Level 9 12/11/22 20:15
[2022-12-11] MEDS: diazePAM 5 MG TAB PO (20:51)
[2022-12-11] MEDS: oxyCODONE 5 MG TAB PO (20:51)
[2022-12-11] MEDS: predniSONE 20 MG TAB 60 MG PO (20:51)
[2022-12-11 21:19] VITALS: BP 129/81; PULSE 75; RESP 20; TEMP 36.5; O2SAT 97
== END 2022-12-11 21:18 | disposition home or self-care (01) ==
PROVIDERS: Emergency Provider Physician Assistant; PCP Family Medicine
DX: M62.830 Muscle spasm of back (principal); S39.012A Strain of muscle, fascia and tendon of lower back, initial encounter; X50.1XXA Overexertion from prolonged static or awkward postures, initial encounter
CPT/HCPCS: 99283; 99284; J7512

== ENCOUNTER 2023-05-31 10:04 | Outpatient (REF) | payer BC, SELFPAY ==
[2023-05-31 15:43] LABS: HCT 45.3 % (40.0-50.0); HGB 15.8 g/dL (13.5-17.5); MCH 32.4 pg (27.0-33.0); MCHC 34.9 % (32.0-36.0); MCV 93 fL (80-95); MPV 10.6 fL (8.0-11.0); Platelet Count 201 10^3/uL (130-400); RBC 4.88 10^6/uL (4.36-5.78); RDW 12.2 % (11.8-14.1); RDW-SD 42.3 fL; WBC 6.19 10^3/uL (4.4-10.8)
[2023-05-31 16:10] LABS: ALT 54 U/L (16-63); AST 29 U/L (15-37); Albumin 4.1 g/dL (3.4-5.0); Alkaline Phosphatase 72 U/L (46-116); Anion Gap 8.1 mmol/L (3-11); BUN 15 mg/dL (7-18); Bilirubin, Total 0.8 mg/dL (0.2-1.0); CO2 25.9 mmol/L (21.0-32.0); Calcium 10.2 mg/dL (8.5-10.1); Calculated LDL 104 mg/dL (<100); Chloride 106 mmol/L (98-107); Cholesterol 157 mg/dL (<200); Estimated GFR 89.44 (mL/min/1.73m2); Glucose 104 mg/dL (74-106); HDL Cholesterol 39 mg/dL (40-60); Potassium 4.5 mmol/L (3.5-5.1); Sodium 140 mmol/L (136-145); Total Protein 7.4 g/dL (6.4-8.2); Triglyceride 73 mg/dL (<150)
[2023-05-31 17:06] LABS: Hemoglobin A1C 5.1 % (<5.7)
== END 2023-05-31 10:05 | disposition home or self-care (01) ==
LOC: NCHCN 10:04
PROVIDERS: PCP Family Medicine; Visit Provider Physician Assistant Medical
DX: R73.03 Prediabetes (principal); I10 Essential (primary) hypertension; R79.89 Other specified abnormal findings of blood chemistry
CPT/HCPCS: 80053; 80061; 85027; 83036

== ENCOUNTER 2024-03-13 14:45 | Outpatient (REF) | payer BC, SELFPAY ==
[2024-03-13 18:50] LABS: Abs Immature Grans 0.02 10^3/uL (0.0-0.06); Absolute Basophil Count 0.06 10^3/uL (0.0-0.2); Absolute Eosinophil Count 0.21 10^3/uL (0.0-0.7); Absolute Lymphocyte Count 2.22 10^3/uL (1.2-3.4); Absolute Monocyte Count 0.66 10^3/uL (0.1-0.8); Absolute Neutrophil Count 3.63 10^3/uL (1.2-6.7); Basophils % 0.9 %; Eosinophils % 3.1 %; HCT 47.3 % (40.0-50.0); HGB 16.6 g/dL (13.5-17.5); Immature Grans % 0.3 %; Lymphocytes % 32.6 %; MCH 33.1 pg (27.0-33.0); MCHC 35.1 % (32.0-36.0); MCV 94 fL (80-95); MPV 9.9 fL (8.0-11.0); Monocytes % 9.7 %; Neutrophils % 53.4 %; Platelet Count 227 10^3/uL (130-400); RBC 5.01 10^6/uL (4.36-5.78); RDW 11.9 % (11.8-14.1); RDW-SD 41.2 fL
[2024-03-13 19:07] LABS: ALT 70 U/L (16-63); AST 35 U/L (15-37); Albumin 4.1 g/dL (3.4-5.0); Alkaline Phosphatase 78 U/L (46-116); Anion Gap 8.2 mmol/L (3-11); BUN 17 mg/dL (7-18); Bilirubin, Total 0.7 mg/dL (0.2-1.0); CO2 26.8 mmol/L (21.0-32.0); Calcium 9.9 mg/dL (8.5-10.1); Chloride 107 mmol/L (98-107); Estimated GFR 88.88 (mL/min/1.73m2); Glucose 96 mg/dL (74-106); Potassium 4.5 mmol/L (3.5-5.1); Sodium 142 mmol/L (136-145); Total Protein 7.1 g/dL (6.4-8.2)
[2024-03-13 19:14] LABS: Hemoglobin A1C 5.4 % (<5.7)
== END 2024-03-13 14:46 | disposition home or self-care (01) ==
LOC: NCHCN 14:45
PROVIDERS: PCP Family Medicine; Visit Provider Physician Assistant Medical
DX: Z01.818 Encounter for other preprocedural examination (principal); R73.03 Prediabetes
CPT/HCPCS: 80053; 83036; 85025

== ENCOUNTER 2024-12-01 15:06 | Outpatient (REF) | payer BC, SELFPAY ==
[2024-12-01 16:23] LABS: Calculated LDL 73 mg/dL (<100); Cholesterol 155 mg/dL (<200); HDL Cholesterol 34 mg/dL (40-60); Triglyceride 244 mg/dL (<150)
== END 2024-12-01 15:07 | disposition home or self-care (01) ==
LOC: NCHCN 15:06
PROVIDERS: PCP Family Medicine; Visit Provider Physician Assistant Medical
DX: I10 Essential (primary) hypertension (principal)
CPT/HCPCS: 80061

== ENCOUNTER 2025-02-05 07:44 | Day surgery (SDC) | payer BC, SELFPAY ==
--- NOTE | 2025-02-04 16:26 | PDOC.DSDIS_ITS ---
Date of service: 02/05/25 Discharge Plan Disposition Patient Disposition: Home Condition: Good Discharge Details Reason For Visit: Screening colonoscopy Attending Provider: Fabian Jackson Primary Care Provider: Marcellus Hernandez Home Meds and New Rx's Prescriptions: Continued atenolol 25 MG tablet 25 mg PO DAILY diclofenac sodium 75 mg tablet,delayed release (DR/EC) 75 mg PO BID rabeprazole [AcipHex] 20 mg tablet,delayed release (DR/EC) 20 mg PO DAILY Discontinued bisacodyl [Dulcolax (bisacodyl)] 5 mg tablet,delayed release (DR/EC) 5 mg PO ONCE Qty: 4 0RF Rx Instructions: Take per colonoscopy instructions provided by ordering providers office polyethylene glycol 3350 17 gram/dose powder 17 g PO ONCE Qty: 238 0RF Rx Instructions: Take per colonoscopy instructions provided by ordering providers office Discharge Instructions Instructions: Colon polyps, Diverticulosis Additional Instructions: Moncho, it was good seeing you today. I apologize I did not recognize your first. Colonoscopy went very smoothly, and I hope you feel great this afternoon. I did find, and removed, just 1 polyp today. It came out very easily and similar to your previous experiences, this will be sent to the pathologist for the review. Once we know the nature of that polyp, I will be in touch with recommendations for the timing of your next colonoscopy. Incidentally, you have little bit of diverticulosis as well. Diverticula are little weak spots in the muscular layer of the colon wall. This causes the inside lining (mucosa) to pocket approach outwards a little bit. These pockets are called diverticula, and the condition of having them is known as diverticulosis. I find that many patients that I do colonoscopy in. Most of the time, patients are never bothered by them. They can get infected or inflamed during episodes that we refer to as diverticulitis. Patient is typically experience that as sharp pain, usually on the left side of the belly, with associated fevers, and a feeling of illness. Hopefully, ears will never bother you. I generally recommend the patient stay well-hydrated with plenty of water through the course of the day, eat lots of fiber, and avoid any symptoms of constipation. If having questions about any of this, please feel free to give me a call at [phone]. Otherwise, we will be in touch once we have the polyp report. 1. If tolerated, consume a soft, low fiber diet for 1-2 days. [address] Do not drive, drink alcohol, operate machinery, make critical decisions, or d o activities that require coordination or balance for 24 hours. 3. Because air was put into your colon during the procedure, expelling air from your rectum (passing gas or farting) is normal. 4. You may not have a bowel movement for 1-3 days because of the colonoscopy prep. This is normal. 5. Go directly to the emergency room if you notice any of the following: Develop chills (warm to touch), or if you have a thermometer and your temperature is above 101 Difficulty breathing or difficultly swallowing Persistent vomiting Severe abdominal pain, other than gas cramps Severe chest pain Black, tarry stools Any bleeding ? exceeding one tablespoon 6. Call your physician if the site where your intravenous was started becomes red, swollen, painful, and warm to touch. 7. Your physician has reviewed your pre-procedure medications. Please continue to take those medications as previously ordered. You will be given specific information/education regarding any changes to your medications before leaving. Stand Alone Forms: Anesthesia Discharge InstReece, Safia Mendiola (DSU) Activity:: Activity as Tolerated Diet:: As Tolerated Discharge Orders Discharge Orders: Discharge Order (Routine); Ordered 02/04/25 Ordered By: Fabian Jackson DS: Diagnosis Discharge Diagnosis (1) Encounter for screening colonoscopy: Status: Acute Asessment and Plan: Follow-up on polypectomy result
--- NOTE | 2025-02-04 16:27 | COLE_ITS ---
Date of service: 02/05/25 Time of Service: 09:44 Colonoscopy Report Date of procedure: 02/05/25 Pre-op diagnosis general: Screening colonoscopy Post-op diagnosis procedure note: other (Diverticulosis, colon polyp) Procedure: Colonoscopy with polypectomy Surgeon: Fabian Jackson Anesthesia Type: General:No Airway Estimated blood loss (mL): 5 Pathology: other (0.5 centimeter pedunculated polyp at 40 cm from the anus) Complications: None Disposition: same day Indications: Anuel is a 55-year-old male who needs his next screening colonoscopy Prep: Miralax/Dulcolax Procedure Start Time: 09:17 Procedure End Time: 09:38 Retraction Time: 14 Findings: Sigmoid diverticulosis, 0.5 cm pedunculated polyp at 40 cm Procedure Description: After the induction of anesthesia, and with the patient in left lateral decubitus position, I began by performing an external anorectal exam.? Perineum and skin were normal, as was the anal verge.? There was no evidence of external hemorrhoids.? Next, I performed a digital rectal exam.? I did not appreciate any abnormal findings.? Next, I advanced a colonoscope into the rectal vault.? I performed retroflexion.? This appeared normal.? Using irrigation, I then advanced the colonoscope beyond the rectal folds and into the sigmoid colon before advancing towards the cecum.? There is sigmoid diverticulosis.? The scope was noted to be in the cecum by identification of the ileocecal valve and appen diceal orifice.? I then began withdrawing the colonoscope using repeated irrigation as necessary for full evaluation of the colonic mucosa. Around 40 cm from the anal verge was a 0.5 cm pedunculated polyp. Narrowband imaging was used to assist with the analysis. Features appeared consistent with adenomatous polyp, and this was removed with cold snare polypectomy. There was minimal bleeding. Resection was complete. ?Once the scope was withdrawn to the level of the rectum, great care was taken to examine portions of the rectal folds.? Finally, the scope was withdrawn and the patient was brought to the same-day surgery recovery unit as the anesthetic wore off. ?The findings and instructions were shared with the patient prior to discharge. [place] Bowel Prep [place] Bowel Prep Right Colon: 2 Left Colon: 3 Transverse Colon: 3 Total Score: 8
[2025-02-05 08:07] VITALS: BP 127/94; PULSE 67; RESP 16; TEMP 36.4; O2SAT 96
[2025-02-05] MEDS: Lactated Ringers 1,000 ML 80 ML IV (08:20)
--- NOTE | 2025-02-05 08:31 | W.ANESPRE ---
General Info Date of Service Date Performed: 02/05/25 Height: 6 ft 1 in Weight: 138.3 kg Body Mass Index (BMI): 40.2 Surgical Procedure: Operation Date: 02/05/25 09:05 Proposed Procedure Side Surgeon p Colonoscopy Fabian Jackson MD Actual Procedure Side Surgeon p Colonoscopy Not Applicable Fabian Jackson MD Pre-Op Diagnosis Post-Op Diagnosis Screening colonoscopy, history of polyps Meds Allergies and Home Medications Allergies Allergy/AdvReac Type Severity Reaction Status Date / Time No Known Allergies Allergy Verified 02/05/25 08:05 Home Medication ?Medication ?Instructions ?Recorded atenolol 25 mg tablet 25 mg PO DAILY 03/21/15 diclofenac sodium 75 mg 75 mg PO BID 05/23/21 tablet,delayed release rabeprazole 20 mg tablet,delayed 20 mg PO DAILY 06/20/21 release (AcipHex) Current Visit Medications: Current Medications Generic Name Dose Route Start Last Admin Trade Name Freq PRN Reason Stop Dose Admin Ringer's Solution 1,000 mls @ 80 mls/hr 02/05/25 06:00 02/05/25 08:20 IV 02/05/25 23:59 80 mls/hr INFUSION JERZY Administration IV Miscellaneous Supplies 1 each 02/05/25 06:00 Iv Access IV 02/05/25 23:59 DIRECTED JERZY Ondansetron HCl 4 mg 02/04/25 16:28 Ondansetron 4 Mg/2 Ml Vial IVP 03/06/25 16:27 Q4H PRN PRN Nausea / Vomiting Sodium Chloride 0 ml 02/05/25 06:00 Normal Saline Flush 10 Ml Syr IV 02/05/25 23:59 PRN PRN Sodium Chloride 0 ml 02/05/25 06:00 Normal Saline 10 Ml Vial IJ 02/05/25 23:59 DIRECTED PRN Sterile Water 0 ml 02/05/25 06:00 Water,Injection,Sterile 10 Ml Vial IJ 02/05/25 23:59 DIRECTED PRN PFSH Active Problems Active Problems: Problem Status Onset Code Encounter for screening colonoscopy Acute Z12.11 Left carpal tunnel syndrome Acute G56.02 Tubular adenoma of colon Chronic D12.6 Family history of colon cancer Chronic Z80.0 S/P colonoscopy Acute ~04/14/19 Z98.890 Medical History Medical History Hx of colonic polyp Pain in left shoulder GERD (gastroesophageal reflux disease) Bilateral knee pain HTN (hypertension) Skin tag Obesity Nicotine dependence, chewing tobacco, uncomplicated Impaired fasting glucose PT. STATES HE IS UNSURE OF THIS Elevated LFTs Arthralgia Right middle lobe pulmonary nodule Tubular adenoma of colon Fredo, 07/01/15 Surgical History Surgical History History of arthroscopy of both knees Colonoscopy - IV Sedation (07/01/15) Dr.Chris Ty Tobacco Smoking/Tobacco Use Status: Current every day Tobacco Type: smokeless tobacco Alcohol Alcohol Intake: current Alcohol intake frequency: a few times a week Alcohol type: beer and hard liquor Substance Use Substance use: Never Substance use type: does not use Vital Signs and Lab Results Vital Signs Most Recent Vital Signs in EMR: Most Recent Vital Signs Temp Pulse Resp BP Pulse Ox 36.4 C L 67 16 127/94 H 96 02/05/25 08:07 02/05/25 08:07 02/05/25 08:07 02/05/25 08:07 02/05/25 08:07 Lab Results Blood Type / Crossmatch: No Data to Display Complete Blood Count: No Data to Display Complete Metabolic Panel: No Data to Display Liver Function Panel: No Data to Display Coagulation Panel: No Data to Display Cardiac Panel: No Data to Display Arterial Blood Gas: No Data to Display Venous Blood Gas: No Data to Display Pancreas Panel: No Data to Display Thyroid Panel: No Data to Display Infectious Disease: No Data to Display Blood Cultures: No Data to Display Toxicology Panel: No Data to Display Imaging and Studies Imaging and Studies Study information below may be from another EMR and interpreted by another provider. Please see original notes in EMR for more complete details. Stress Test Summary: STRESS TEST PATIENT NAME: DORA CARDOZO UNIT #: [id number] ADMITTING PROVIDER: RACHELLE BEASLEY LUCY PRIMARY CARE PROVIDER: GHASSAN CLARKE MD DATE OF SERVICE: 12/31/13 : 1970 Physician: Aaron/Rachelle. Tech: JOI. Hgt(inches): 73 Wgt(lbs): 284 History: 43 year old man who noted the onset of non-exertional chest discomfort over several days. Because of this discomfort, which lasted only seconds at a time, he presented to the ER where EKG and enzymes were normal. It was felt to be atpical pain and he was referred for a stress test. Family Hx: None. Smoking Hx: Never. Exercise: None. Diabetes: Neg Hypertension: Yes BP(supine): 132/68 Cholesterol: Trig: HDL: LDL: Date: Lipid meds: None. Troponin: <0.02 Date: 12/16/13 Other: None reported. Meds: Atenolol (last dose 12/29/13), ASA, Prilosec. Protocol: Kang Max MPH: 4.2 % Grade: 16.0 Target HR 100%: 176 85%: 150 ETT ended at: 10:21 due to Fatigue, patient request. Peak HR: 156 METS: 89 Physical examination: Lungs: Clear Cor: Reg Resting 12 lead EKG: SB. 59 BPM. RESULTS Arrhythmias: Single PVC during recovery. Angina: None. HR response: Normal. Max 156 BPM @ 89% of target. BP response: Normal. Max SBP 168. ST-T changes: No ischemic EKG changes are elicited. Functional Capacity: Average. IMPRESSION: Normal study. Negative for ischemia. Anesthesia Assessment and Plan Anesthesia History Personal History: No History of Anesthesia Complications Family History: No Family History of Anesthesia Complications Exercise Tolerance Exercise Tolerance: Metabolic Equivalents>4 Pertinent Negatives Pertinent Negatives: No Symptoms of GERD (well controlled with med, took this am) Cardiac & Pulmonary Exam Cardiac Exam: Normal S1/S2 Heart Sounds Pulmonary Exam: Clear Bilateral Breath Sounds Implantable Cardiac Device Does patient have a Pacemaker or an ICD?: No Airway Exam Known Difficult Airway: No Mallampati Class: 2 Mouth Opening: Normal (> 3cm) Thyromental Distance: Greater than 3 cm Neck Range of Motion: Full ROM Neck Circumference: Normal Teeth Condition: Normal Dentition ASA Classification ASA Score: ASA 3 Emergency Case?: No NPO Status NPO Status: NPO Clears >2 hours, Solids >8 hours Anesthesia Plan Resuscitation Status: Full Code Anesthesia Technique: General Anesthesia Airway Planned: Natural Airway Monitors Used: Standard Monitors
[2025-02-05 08:33] VITALS: BMI 40.2
--- NOTE | 2025-02-05 09:35 | BOWEL_PTH ---
PATIENT: Anuel Middleton LOC: [facility] U#:[id number] AGE/SX: 55/M ROOM: RE02/05/[address]: Fabian Jackson MD : 1970 BED: DIS: 02/05/2025 SPEC #: [id number] RECD: 02/05/25 13:10 STATUS: [place] RE #: [id number] MATT: 02/05/25 09:[address]: Fabian Jackson DEPT: Surgical Specimen RECD BY: Rena Alcala ENTERED: 02/05/25 13:11 SP TYPE: Bowel OTHR DR: Marcellus Hernandez Tissues: 1 - BIOPSY BOWEL Procedures: GROSS AND MICRO LEVEL 4 Comments: [id number]
[2025-02-05 09:45] VITALS: BP 118/77; PULSE 71; RESP 16; TEMP 36.7; O2SAT 94
[2025-02-05 10:20] VITALS: BP 113/81; PULSE 64; RESP 18; TEMP 36.4; O2SAT 96
--- NOTE | 2025-02-05 10:50 | W.ANESPOSTOP ---
Postoperative Evaluation Date, Time and Location Date Performed: 02/05/25 Time Performed: 10:20 Patient Location: Day Surgery Unit Vital Signs Most Recent Imported Vital Signs: Most Recent Vital Signs Temp Pulse Resp BP Pulse Ox 36.4 C L 64 18 113/81 96 02/05/25 10:20 02/05/25 10:20 02/05/25 10:20 02/05/25 10:20 02/05/25 10:20 Pain Score Most Recent Pain Score: Most Recent Pain Score Pain Level 0 02/05/25 10:20 Assessment Mental Status: Awake (Alert & Oriented to Patient Baseline) Airway and Respiratory Function: Patent airway with normal (patient baseline) respiratory exam Cardiovascular Function: Hemodynamically Stable Hydration Status: Adequately Hydrated Nausea & Vomiting: No Nausea or Vomiting Pain: Pt. Denies Any Pain Peripheral Nerve Block: Patient did not receive a nerve block
== END 2025-02-05 10:23 | disposition home or self-care (01) ==
LOC: SUR 07:45
PROVIDERS: PCP Physician Assistant Medical; Visit Provider Surgery
PROC: 0DJD8ZZ Inspection of Lower Intestinal Tract, Via Natural or Artificial Opening Endoscopic (ICD-10-PCS; CPT 45378; principal; 2025-02-05 09:00)
DX: Z12.11 Encounter for screening for malignant neoplasm of colon (principal); D12.5 Benign neoplasm of sigmoid colon; K57.30 Diverticulosis of large intestine without perforation or abscess without bleeding
CPT/HCPCS: 45380; 88305; J2003; J2704

== ENCOUNTER 2025-05-17 20:16 | Outpatient (REF) | payer BC, SELFPAY ==
[2025-05-17 20:34] LABS: Abs Immature Grans 0.02 10^3/uL (0.0-0.06); HCT 46.9 % (40.0-50.0); HGB 16.3 g/dL (13.5-17.5); Immature Grans % 0.2 %; MCH 31.7 pg (27.0-33.0); MCHC 34.8 % (32.0-36.0); MCV 91 fL (80-95); MPV 10.8 fL (8.0-11.0); Platelet Count 206 10^3/uL (130-400); RBC 5.14 10^6/uL (4.36-5.78); RDW 11.9 % (11.8-14.1); RDW-SD 39.8 fL; WBC 9.24 10^3/uL (4.4-10.8)
[2025-05-17 20:49] LABS: ALT 61 U/L (16-63); AST 40 U/L (15-37); Albumin 4.5 g/dL (3.4-5.0); Alkaline Phosphatase 96 U/L (46-116); Anion Gap 9.2 mmol/L (3-11); BUN 20 mg/dL (7-18); Bilirubin, Total 1.1 mg/dL (0.2-1.0); CO2 24.8 mmol/L (21.0-32.0); Calcium 10.8 mg/dL (8.5-10.1); Chloride 105 mmol/L (98-107); Estimated GFR 88.33 (mL/min/1.73m2); Glucose 96 mg/dL (74-106); Potassium 4.6 mmol/L (3.5-5.1); Sodium 139 mmol/L (136-145); Total Protein 7.7 g/dL (6.4-8.2)
[2025-05-17 21:01] LABS: Hemoglobin A1C 5.1 % (<5.7)
== END 2025-05-17 20:17 | disposition home or self-care (01) ==
LOC: NCHCN 20:16
PROVIDERS: PCP Physician Assistant Medical; Visit Provider Physician Assistant Medical
DX: R73.03 Prediabetes (principal); K75.81 Nonalcoholic steatohepatitis (NASH)
CPT/HCPCS: 80053; 83036; 85025